=== PATIENT | female | born 1955 | race Caucasian/White ===

== ENCOUNTER 2024-04-28 06:02 | Outpatient (CLI) | payer MEDICARE, BC | END 2024-04-28 23:59 | disposition home or self-care (01) | LOC: MRI02 06:02 | PROVIDERS: ATTEND Podiatrist Foot & Ankle Surgery | DX: S93.622A Sprain of tarsometatarsal ligament of left foot, initial encounter (principal); M25.472 Effusion, left ankle; M25.372 Other instability, left ankle; M79.672 Pain in left foot; X58.XXXA Exposure to other specified factors, initial encounter; Y93.89 Activity, other specified; Y92.89 Other specified places as the place of occurrence of the external cause; Y99.8 Other external cause status | CPT/HCPCS: 73721 ==